=== PATIENT | male | born 1995 | race Caucasian/White ===

== ENCOUNTER 2016-05-31 22:03 | Emergency (ER) | payer BC ==
[2016-05-31] MEDS ORDERED: Sodium Chloride 0.9% 500 ML IV ONE (22:23)
[2016-05-31] MEDS ORDERED: Famotidine 20 MG/2 ML SDV IVPUSH ONE (22:24)
[2016-05-31] MEDS ORDERED: diphenhydrAMINE 50 MG/ML SDV IVPUSH ONE (22:24)
[2016-05-31] MEDS ORDERED: methylPREDNISolone Sodium Succinate 125 MG/2 ML SDV IVPUSH ONE (22:24)
--- NOTE | 2016-05-31 22:29 | EDM.PDOC ---
ED HPI Allergic Reaction - General Chief Complaint: Allergic Reaction Stated Complaint: RASH POSS ALLERGIC REACTION Time Seen by Provider: 05/31/16 22:23 Source of Information: Reports: Patient History Limitations: Reports: No limitations - History of Present Illness INITIAL COMMENTS - FREE TEXT/NARRATIVE: 20-year-old male attends the ED with generalized itchy rash. Patient reports it started yesterday afternoon after drinking a Mountain Dew drank that contained red 40 dye. He had never taken this before. He started developed hives within the hour of taking a drink. He was younger he had problems with red food dyes but it seemed outgrown it. He was seen at the walk-in clinic today and is told to continue taking Benadryl but tonight at home or heaviness in his chest and the rash is spreading to involve more of his skin. He's had no diarrhea. Has some feeling of throat closure. Generalized pruritus. Symptom Onset Date: 05/30/16 Symptom Onset Time: 17:00 Timing/Duration: Reports: Hour(s):, Getting worse, Gradual onset Location, Skin: Reports: generalized Characteristics: Reports: urticarial Associated features: Reports: warmth, swelling Quality: Reports: Same as previous episode. Denies: Sharp, Stabbing, Throbbing , Other Severity: moderate Known identified source: possible/maybe (Again form of Mountain Dew that would contain red 40 dye yesterday p.m. and within the hour developed hives.) Place of Occurrence: work Sick Contact: no Associated Symptoms: Reports: chest pain, rash. 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 Last dose was about 5 hours ago) - Related Data Allergies/ADRs: Allergies Allergy/AdvReac Type Severity Reaction Status Date / Time No Known Allergies Allergy Verified 05/31/16 22:14 Home Meds: Home Meds Prednisone [IJD: predniSONE] 20 mg PO BID #8 tab 05/31/16 [Rx] Past Medical History - Past Health History Medical/Surgical History: Denies Medical/Surgical History Musculoskeletal History: Reports: Other (see below) Other Musculoskeletal History: wrist fracture Dermatologic History: Reports: Urticaria - Past Surgical History Musculoskeletal Surgical History: Reports: Other (see below) Other Musculoskeletal Surgeries/Procedures:: left foot surgery with pinning Social & Family History - Family History Family Medical History: Noncontributory - Tobacco Use Smoking Status *Q: Light Tobacco Smoker Years of Tobacco use: 2 Packs/Tins Daily: 0.1 - Caffeine Use Caffeine Use: Reports: Soda - Recreational Drug Use Recreational Drug Use: No - Living Situation & Occupation Occupation: employed ED ROS ALLERGIC REACTION - Review of Systems Review Of Systems: See Below Constitutional: Denies: fever, chills, malaise, weakness, fatigue HEENT: Reports: No symptoms Respiratory: Reports: No Symptoms Cardiovascular: Denies: No symptoms, Chest pain, Blood pressure problem Endocrine: Reports: no symptoms GI/Abdominal: Reports: No symptoms : Reports: no symptoms Musculoskeletal: Reports: no symptoms Skin: Reports: urticaria Neurological: Reports: No Symptoms Psychiatric: Reports: No symptoms, Other Hematologic/Lymphatic: Reports: no symptoms Immunologic: Reports: no symptoms ED EXAM GENERAL NO PERIP PULSE - Physical Exam Exam: See Below Exam Limited By: No limitations General Appearance: alert, WD/WN, mild distress (pruritic ) Ears: normal TMs Throat/Mouth: Normal inspection, Normal lips, Normal teeth, Normal oropharynx, Other (uvula normal ) Head: atraumatic, normocephalic Neck: normal inspection, supple, non-tender, full range of motion. No: lymphadenopathy (L), lymphadenopathy (R) Respiratory/Chest: lungs clear, normal breath sounds, no accessory muscle use, chest non-tender Cardiovascular: normal peripheral pulses, regular rate, rhythm, no edema, no gallop, no murmur GI/Abdominal: normal bowel sounds, soft, non tender, no organomegaly, no abnormal bruit Back Exam: normal inspection, full range of motion. No: CVA tenderness (L), CVA tenderness (R) Extremities: normal inspection, normal range of motion, non-tender. No: no pedal edema, normal capillary refill Neurological: alert, oriented, CN II-XII intact, normal cognition, normal gait Psychiatric: normal affect, normal mood Skin Exam: Rash (generalized urticaria.) Course - Vital Signs Last Recorded V/S: Last Vital Signs Temp 36.3 C 05/31/16 22:10 Pulse 68 05/31/16 22:10 Resp 18 05/31/16 22:10 BP 131/90 05/31/16 22:10 Pulse Ox 100 05/31/16 22:10 - Orders/Labs/Meds Meds: Medications Discontinued Medications Generic Name Dose Route Start Last Admin Trade Name Jeffrey PRN Reason Stop Dose Admin Diphenhydramine HCl 50 mg 05/31/16 22:24 05/31/16 22:33 Benadryl IVPUSH 05/31/16 22:25 50 mg ONETIME ONE Administration Famotidine 20 mg 05/31/16 22:24 05/31/16 22:37 Pepcid IVPUSH 05/31/16 22:25 20 mg ONETIME ONE Administration Sodium Chloride 500 mls @ 999 mls/hr 05/31/16 22:23 05/31/16 22:39 Normal Saline IV 05/31/16 22:53 999 mls/hr .BOLUS ONE Administration Methylprednisolone Sodium Succinate 125 mg 05/31/16 22:24 05/31/16 22:35 Solu-Medrol IVPUSH 05/31/16 22:25 125 mg ONETIME ONE Administration - Radiology Interpretation Free Text/Narrative:: 20-year-old male presents to the ED with generalized urticaria. Started yesterday afternoon and we think the trigger may well been a new form of Mountain Dew that he drank for the first time. It did contain a red food dye which he supposedly was allergic to when he was younger. Symptoms started with an hour of taking that drink. At present is generalized urticaria not benefiting from oral Benadryl. He has no oropharyngeal or chest symptoms. Plan IV saline at 125 mg IV Pepcid 20 mg IV and Benadryl 50 mg IV. Will be discharged , prednisone 20 twice a day for 4 days. - Re-Assessments/Exams Free Text/Narrative Re-Assessment/Exam: 05/31/16 22:59 has received all of his medications. He was is no worse or better. The itching is slowly resolving. I will discharge him to home. He will use prednisone 20 mg twice daily for the next 4 days. Inst[employer] machine used to dispense 10 tablets. Departure - Departure Time of Disposition: 22:59 Disposition: Home, Self-Care 01 Condition: fair Clinical Impression: Urticaria due to food allergy Prescriptions: Prednisone [IJD: predniSONE] 20 mg PO BID #8 tab Referrals: PCP,None [Primary Care Provider] - Forms: ED Department Discharge Additional Instructions: Evaluation in the emergency room tonight in regards to development of generalized hives . This started yesterday after drinking a new form of Mountain Dew that contained red food dye 40 which apparently was allergic to when he was a youngster. Symptoms started hour work within the hour uptake drinking and drink. Therefore believe this is the culprit. Treated in the ED with intravenous medications Solu-Medrol 125 mg Pepcid 20 mg and Benadryl 50 mg. Continue taking 50 mg of Benadryl every 6 hours as needed for rash or itch. We'll need to start prednisone 20 mg tomorrow morning and this is taken with breakfast and supper for the next 4 days to clear up the rash. He Solu-Medrol again used in the ED takes 4-6 hours to work and should start to see a benefit tomorrow. No rashes aggravated by getting warm Doppler he did such as hot shower hot tub or vigorous exercise. Rash may take up to 5 days to go away completely. If it has not disappeared after that timeframe or recurs within 2 days of discontinuing the prednisone return to medical care.
[2016-05-31 23:10] VITALS: BP 119/69
== END 2016-05-31 23:05 | disposition home or self-care (01) ==
LOC: JD.ED 22:03
DX: L50.0 Allergic urticaria (principal); F17.210 Nicotine dependence, cigarettes, uncomplicated; Z98.890 Other specified postprocedural states
CPT/HCPCS: 96374; 96375; 99283; J1200; J2930; J7040; 99284

== ENCOUNTER 2016-07-09 19:21 | Emergency (ER) | payer BC ==
[2016-07-09 19:42] VITALS: BP 114/71
--- NOTE | 2016-07-09 19:55 | EDM.PDOC ---
ED HPI GENERAL MEDICAL PROBLEM - General Chief Complaint: Allergic Reaction Stated Complaint: POSS ALLERGIC REACTION Time Seen by Provider: 07/09/16 19:41 Source of Information: Reports: Patient History Limitations: Reports: No Limitations - History of Present Illness INITIAL COMMENTS - FREE TEXT/NARRATIVE: The patient presents with hives for 3 days. He said this happened last month and he needed to go on steroids. He has been trying benadryl at home but that is not helping. He has not identified any foods, soaps, detergents, that may be the cause. There is nothing at work either. He has no shortness of breath and no swelling in his throat. 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: Other (see below) Other Treatments GUEST SERVICES DIRECTOR: benadryl, oatmeal baths, lotions - Related Data Allergies Allergy/AdvReac Type Severity Reaction Status Date / Time No Known Allergies Allergy Verified 07/09/16 19:42 Home Meds: Home Meds Prednisone [IJD: predniSONE] 40 mg PO WITHBREAKFAST #10 tab 07/09/16 [Rx] Past Medical History - Past Health History Medical/Surgical History: Denies Medical/Surgical History Musculoskeletal History: Reports: Other (See Below) Other Musculoskeletal History: wrist fracture Dermatologic History: Reports: Urticaria - Past Surgical History Musculoskeletal Surgical History: Reports: Other (See Below) Social & Family History - Family History Family Medical History: Noncontributory - Tobacco Use Smoking Status *Q: Never Smoker Years of Tobacco use: 2 Packs/Tins Daily: 0.1 - Caffeine Use Caffeine Use: Reports: None - Recreational Drug Use Recreational Drug Use: No - Living Situation & Occupation Occupation: Employed ED ROS ALLERGIC REACTION - Review of Systems Review Of Systems: See Below Constitutional: Reports: No Symptoms HEENT: Reports: No Symptoms Respiratory: Reports: No Symptoms Cardiovascular: Reports: No Symptoms Endocrine: Reports: No Symptoms GI/Abdominal: Reports: No Symptoms : Reports: No Symptoms Musculoskeletal: Reports: No Symptoms Skin: Reports: Urticaria Neurological: Reports: No Symptoms ED EXAM GENERAL NO PERIP PULSE - Physical Exam Exam: See Below Exam Limited By: No Limitations General Appearance: Alert, No Apparent Distress Ears: Normal External Exam Nose: Normal Inspection Throat/Mouth: Normal Inspection Head: Atraumatic, Normocephalic Neck: Normal Inspection Respiratory/Chest: No Respiratory Distress, Lungs Clear, Normal Breath Sounds Cardiovascular: Regular Rate, Rhythm, No Edema, No Murmur GI/Abdominal: Soft, Non-Tender, No Organomegaly, No Mass Back Exam: Normal Inspection Extremities: Normal Inspection Neurological: Alert, Oriented, No Motor/Sensory Deficits Skin Exam: Rash (generalized urticharia) Course - Vital Signs Last Recorded V/S: Last Vital Signs Temp 98.3 F 07/09/16 19:39 Pulse 55 L 07/09/16 19:39 Resp 16 07/09/16 19:39 BP 114/71 07/09/16 19:39 Pulse Ox 100 07/09/16 19:39 - Re-Assessments/Exams Free Text/Narrative Re-Assessment/Exam: 07/09/16 19:53 I will get him on some steroids, pepcid and benadryl. He is scheduled to see an screed person next month. Departure - Departure Time of Disposition: 19:55 Disposition: Home, Self-Care 01 Condition: good Clinical Impression: Urticaria Allergic reaction Qualifiers: Encounter type: initial encounter Qualified Code(s): T78.40XA - Allergy, unspecified, initial encounter - Discharge Information Prescriptions: Prednisone [IJD: predniSONE] 40 mg PO WITHBREAKFAST #10 tab Referrals: Ariana Escalante [Physician] - 1 Week Forms: ED Department Discharge Additional Instructions: Take the prednisone 2 pills daily for 5 days. Take pepcid 20mg daily for 1 week. Take benadryl 50mg every 6 hours as needed for the rash. Please return if you are worse such as trouble breathing or swallowing or if the rash does not go away.
== END 2016-07-09 20:10 | disposition home or self-care (01) ==
LOC: JD.ED 19:21
DX: L50.0 Allergic urticaria (principal)
CPT/HCPCS: 99283